=== PATIENT | female | born 1960 | race Caucasian/White ===

== ENCOUNTER → 2017-06-14 18:11 | Outpatient (CLI) | payer MEDICAID ==
[~2017-06-14 18:11] MED LIST: EFFEXOR XR75 MG PO; ESTRACE1 MG PO; LISINOPRIL-HCTZ1 T13 PO; NORCO 7.5/325 T1 TA1 PO; OS-CAL500 MG PO; PRAVACHOL40 MG PO; VITAMIN D31000 UNIT PO; XANAX1 MG PO
[2017-08-24 07:45] VITALS: BMI 26.2
== END | disposition home or self-care (01) ==
LOC: D.MAMMO 15:45
DX: Z12.31 Encounter for screening mammogram for malignant neoplasm of breast (principal)

== ENCOUNTER → 2017-06-17 09:15 | Outpatient (CLI) | payer MEDICAID ==
--- NOTE | 2017-06-22 10:07 | EC ---
PATIENT:DAYSI DOAN DATE OF SERVICE: 06/17/17 SEX: F MEDICAL RECORD: [id number] DATE OF : 58 LOCATION:D.[facility], [facility] AGE OF PATIENT: 57 ADMISSION DATE: 06/17/17 REFERRING PHYSICIAN: INTERPRETING PHYSICIAN: LAWANDA BELLAMY MD ECHOCARDIOGRAM REPORT ECHO CHARGES 4 ECHO COMPLETE CLINICAL DIAGNOSIS: CP/SOB ECHOCARDIOGRAPHIC MEASUREMENTS (adult normal given) AC root (d.<3.7cm) 2.6 cm LV Septum d (<1.2 cm> 1.6 cm Valve Excursion 1.7 cm LV Septum (systole) 2.0 cm Left Atria (s.<4.0cm> 3.7 cm LVPW d(<1.2cm) 1.6 cm RV (d.<2.3cm) 2.5 cm LVPW (sytole) 2.0 cm LV diastole(<5.6CM) 4.5 cm MV E-F(>70mm/sec) cm LV systole 2.2 cm LVOT Diameter 1.9 cm MV exc.(>10mm) cm Est.ejection fraction (50-75%) % Pericardial Effusion N DOPPLER: LVIT cm/sec A 67.0 cm/sec E 97.0 cm/sec LA cm/sec RVSP 20.0 mmHg LVOT 146 cm/sec AOP1/2T m/s Asc. Ao 162 cm/sec RVOT 59.0 cm/sec RA cm/sec PA 86.0 cm/sec AV Gradient Peak 10.4 mmHg AV Mean 4.6 mmHg AV Area 2.2 cm MV Gradient Peak 4.0 mmHg MV Mean 1.1 mmHg MV Area cm COMMENTS: Marketing Segment Manager: Yuri DOTSONOE Pcas: 4 Dr. Bellamy TAPE# PACS DATE OF SERVICE: 06/17/2017 PROCEDURE: Transthoracic echocardiogram. FINDINGS: 1. Left ventricle has [id number]-[id number] concentric left ventricular hypertrophy with inflow characteristics that are normal. No evidence of regional wall motion abnormality and ejection fraction of 60% to 65%. 2. The right ventricle is normal size, normal function. 3. The left atrium is normal size, normal function. ECHOCARDIOGRAM REPORT [id number] DAYSI DOAN 4. The mitral valve has moderate mitral regurgitation. 5. The tricuspid valve has mild tricuspid regurgitation with normal right ventricular systolic pressures estimated on today's study. 6. The pulmonic valve is grossly normal. 7. The aortic valve is normal. 8. The pericardium is normal. CONCLUSIONS: The patient has evidence of mild to moderate hypertensive heart disease with moderate mitral regurgitation. TRANSINT:[id number] Voice Confirmation ID: [id number] DOCUMENT ID: [id number] LAWANDA BELLAMY MD at 1007 CC: [id number] DICTATION DATE: 06/20/17 0936 ICE CREAM SERVER: 06/20/17 1109 DEP CLI 06/17/17 [facility] [address] [place] [address]
[2017-08-24 07:45] VITALS: BMI 26.2
== END | disposition home or self-care (01) ==
LOC: D.ECHO 09:15
DX: R06.00 Dyspnea, unspecified (principal); R00.2 Palpitations

== ENCOUNTER → 2017-07-07 07:31 | Outpatient (CLI) | payer MEDICAID ==
[2017-08-24 07:45] VITALS: BMI 26.2
== END | disposition home or self-care (01) ==
LOC: D.NM 06-23 08:00
DX: R00.2 Palpitations (principal); J44.9 Chronic obstructive pulmonary disease, unspecified; R06.09 Other forms of dyspnea; R07.2 Precordial pain

== ENCOUNTER → 2017-07-18 07:45 | Outpatient (CLI) | payer MEDICAID ==
--- NOTE | 2017-08-09 08:55 | ST ---
PATIENT:DAYSI DOAN MEDICAL RECORD: [id number] SEX: F LOCATION:[facility] ORDER #: ADMISSION DATE: 07/18/17 AGE OF PATIENT: 57 REFERRING PHYSICIAN: INTERPRETING PHYSICIAN: LAWANDA BELLAMY MD DATE OF SERVICE: 07/18/2017 The patient underwent a standard Lexiscan directed nuclear stress test without difficulties per standard protocol. The patient's heart rate was appropriate. She had no significant symptoms before, during, or after. CONCLUSIONS: The patient's ejection fraction is 81%. The patient had an area of mild reversible ischemia in the apical segment. TRANSINT:[id number] Voice Confirmation ID: [id number] DOCUMENT ID: [id number] LAWANDA BELLAMY MD at 0855 CC: [id number] DICTATION DATE: 07/19/172001 SCRIBING MACHINE OPERATOR: 07/20/17 0844 DEP CLI 07/18/17 [id number] [place] [address]
[2017-08-24 07:45] VITALS: BMI 26.2
== END | disposition home or self-care (01) ==
LOC: D.NM 07:45
DX: R07.2 Precordial pain (principal)

== ENCOUNTER 2017-08-24 07:12 | Outpatient (CLI) | payer MEDICAID ==
[~2017-08-24] VITALS: Ht 170.2 cm; Wt 75.9 kg
[2017-08-24] MEDS ORDERED: PRAVACHOL40 MG PO (07:23)
[2017-08-24] MEDS ORDERED: LISINOPRIL-HCTZ1 T13 PO (07:23)
[2017-08-24] MEDS ORDERED: NORCO 7.5/325 T1 TA1 PO (07:24)
[2017-08-24] MEDS ORDERED: EFFEXOR XR75 MG PO (07:24)
[2017-08-24] MEDS ORDERED: XANAX1 MG PO (07:24)
[2017-08-24] MEDS ORDERED: OS-CAL500 MG PO (07:25)
[2017-08-24] MEDS ORDERED: VITAMIN D31000 UNIT PO (07:25)
[2017-08-24] MEDS ORDERED: ESTRACE1 MG PO (07:27)
[2017-08-24 07:45] VITALS: BP 111/64; Ht 170.2 cm; Wt 75.9 kg
[2017-08-24 07:49] LABS: BASOPHILS 0.3 % (0-2); EOSINOPHILS 4.8 % (0-7); HEMATOCRIT 36.3 % (36.0-48.0); IMMATURE GRANULOCYTES 0.2 % (0-5); LYMPHOCYTES 26.2 % (15-50); MCH 30.2 pg (26.0-34.0); MCHC 33.1 g/dL (31.0-37.0); MCV 91.2 fL (80.0-100.0); MEAN PLATELET VOLUME 10.6 fL (7.4-10.4); MONOCYTES 6.3 % (2-11); NEUTROPHILS 62.2 % (40-80); PLATELET COUNT 293 10x3/uL (130-400); RBC 3.98 10x6/uL (4.00-5.40); RDW 13.4 % (11.5-14.5); WBC 9.1 10x3/uL (4.8-10.8)
[2017-08-24 08:02] LABS: ANION GAP 9.5 mmol/L (8-16); CALCIUM 9.5 mg/dL (8.5-10.1); CARBON DIOXIDE 32.5 mmol/L (21.0-32.0)
--- NOTE | 2017-08-24 10:25 | NUR ---
0945 SITTING UP, ROOM AIR WITH NO RESP DISTRESS. NSR W NO C/O CHEST PAIN. PULSES PALP X 4. R WRIST TR BAND C/D/I W NO HEMATOMA OR BLEEDING. FAMILY AT BEDSIDE.
--- NOTE | 2017-08-24 10:27 | NUR ---
1015 R WRIST TR BAND REMAINS C/D/I W NO HEMATOMA OR BLEEDING. ALL VITALS WNL. FAMILY AT BEDSIDE.
--- NOTE | 2017-08-24 10:36 | NUR ---
SITTING UP EATING TURKEY SANDWICH WITH ASSIST FROM FAMILY. 2CC AIR REMOVED FROM R WRIST TR BAND.
--- NOTE | 2017-08-24 10:57 | NUR ---
2CC AIR REMOVED FROM R WRIST TR BAND. WILL MONITOR CLOSELY FOR BLEEDING. PIV REMOVED FROM L AC WITH BANDAID APPLIED. UP TO BEDSIDE TO DRESS WITH ASSIST FROM FAMILY.
== END 2017-08-24 13:13 | disposition home or self-care (01) ==
LOC: D.CATH 07:12
PROVIDERS: Internal Medicine Cardiovascular Disease
DX: I25.10 Atherosclerotic heart disease of native coronary artery without angina pectoris (principal); I12.0 Hypertensive chronic kidney disease with stage 5 chronic kidney disease or end stage renal disease; N18.6 End stage renal disease; R94.39 Abnormal result of other cardiovascular function study; R55 Syncope and collapse; Z01.812 Encounter for preprocedural laboratory examination

== ENCOUNTER 2017-10-20 08:01 | Emergency (ER) | payer MEDICAID ==
[2017-08-24 07:45] VITALS: BMI 26.2
[2017-10-20 08:27] LABS: BASOPHILS 0.2 % (0-2); EOSINOPHILS 2.2 % (0-7); HEMATOCRIT 36.5 % (36.0-48.0); HEMOGLOBIN 12.3 g/dL (12-16); IMMATURE GRANULOCYTES 0.3 % (0-5); LYMPHOCYTES 17.6 % (15-50); MCH 30.1 pg (26.0-34.0); MCHC 33.7 g/dL (31.0-37.0); MCV 89.5 fL (80.0-100.0); MEAN PLATELET VOLUME 10.7 fL (7.4-10.4); MONOCYTES 6.2 % (2-11); NEUTROPHILS 73.5 % (40-80); PLATELET COUNT 309 10x3/uL (130-400); RBC 4.08 10x6/uL (4.00-5.40); RDW 13.4 % (11.5-14.5); WBC 12.5 10x3/uL (4.8-10.8)
[2017-10-20 08:48] LABS: ALBUMIN 3.7 g/dL (3.4-5.0); ALKALINE PHOSPHATASE 72 U/L (46-116); ALT (SGPT) 24 U/L (10-68); BILIRUBIN - TOTAL 0.18 mg/dL (0.2-1.3); CALC OSMOLALITY 271 mosm/kg (275-300); CALCIUM 9.3 mg/dL (8.5-10.1); CARBON DIOXIDE 26.6 mmol/L (21.0-32.0); CHLORIDE - SERUM 98 mmol/L (98-107); CREATININE - SERUM 1.1 mg/dL (0.6-1.3); GLUCOSE 137 mg/dL (74-106); POTASSIUM - SERUM 3.7 mmol/L (3.5-5.1); PROTEIN - SERUM 7.5 g/dL (6.4-8.2); SODIUM 134 mmol/L (136-145); UREA NITROGEN 17 mg/dL (7-18); eGFR NON AFRICAN AMERICAN 54 mL/min (90-120)
[2017-10-20 08:58] LABS: CHOL - HDL RATIO 2.7 ratio (2.3-4.1); CHOLESTEROL, TOTAL 207 mg/dL (0-200); CKMB 1.9 U/L (0.0-3.6); CREATINE KINASE 81 UL (21-215); HDL CHOLESTEROL 77 mg/dL (32-96); LDL CHOLESTEROL 108 mg/dL (0-100); LDL-HDL RATIO 1.4 ratio (1.5-3.5); TRIGLYCERIDE 114 mg/dL (30-200); TROPONIN-I < 0.017 ng/mL (0.000-0.060)
== END 2017-10-20 12:35 | disposition home or self-care (01) ==
LOC: D.ER 08:01
PROVIDERS: Emergency Medicine
DX: R07.9 Chest pain, unspecified (principal); F17.200 Nicotine dependence, unspecified, uncomplicated; I10 Essential (primary) hypertension

== ENCOUNTER → 2017-11-16 07:30 | Outpatient (CLI) | payer MEDICAID ==
[2017-08-24 07:45] VITALS: BMI 26.2
== END | disposition home or self-care (01) ==
LOC: D.RT 11-04 08:00
DX: R06.02 Shortness of breath (principal); R00.2 Palpitations; R07.89 Other chest pain

== ENCOUNTER → 2018-01-13 14:52 | Outpatient (CLI) | payer MEDICAID ==
[2017-08-24 07:45] VITALS: BMI 26.2
[2018-01-13 15:35] LABS: CHOL - HDL RATIO 3.1 ratio (2.3-4.1); LDL-HDL RATIO 1.8 ratio (1.5-3.5)
== END | disposition home or self-care (01) ==
LOC: D.LABREF 14:52
PROVIDERS: Internal Medicine Cardiovascular Disease
DX: E78.5 Hyperlipidemia, unspecified (principal)

== ENCOUNTER 2018-02-28 07:05 | Day surgery (SDC) | payer MEDICAID ==
[2018-02-27 10:35] LABS: HEMATOCRIT 37.3 % (36.0-48.0); HEMOGLOBIN 12.7 g/dL (12-16); RBC 4.24 10x6/uL (4.00-5.40); RDW 12.7 % (11.5-14.5); WBC 9.8 10x3/uL (4.8-10.8)
[2018-02-27 11:00] LABS: CALC OSMOLALITY 283 mosm/kg (275-300); CALCIUM 9.2 mg/dL (8.5-10.1); CARBON DIOXIDE 28.4 mmol/L (21.0-32.0); CHLORIDE - SERUM 106 mmol/L (98-107); CREATININE - SERUM 0.8 mg/dL (0.6-1.3); GLUCOSE 104 mg/dL (74-106); POTASSIUM - SERUM 3.5 mmol/L (3.5-5.1); SODIUM 142 mmol/L (136-145); UREA NITROGEN 15 mg/dL (7-18); eGFR NON AFRICAN AMERICAN 78 mL/min (90-120)
[~2018-02-28] VITALS: Ht 170.2 cm; Wt 77.1 kg
--- NOTE | ~2018-02-28 | OP ---
PATIENT NAME: DAYSI DOAN MEDICAL RECORD: [id number] :58 LOCATION:D.[facility] ADMISSION DATE: SURGEON: CEASAR DUBOSE MD DATE OF OPERATION: 02/28/2018 PREOPERATIVE DIAGNOSES: Left L4-L5 foraminal stenosis and central canal stenosis, left L5 radiculopathy. POSTOPERATIVE DIAGNOSES: Left L4-L5 foraminal stenosis and central canal stenosis, left L5 radiculopathy. SURGEON: Ceasar Dubose MD PRIMARY CARE DOCTOR: Dr. Duffy in [place], [place]. PROCEDURE: L4-L5 left lumbar laminotomy, medial facetectomy and foraminotomy with METRx retractor. DESCRIPTION AND TECHNIQUE: After induction of general endotracheal anesthesia, the patient was rolled prone on the Viral frame. Lumbar spine was prepped and draped in usual sterile fashion. Fluoroscopic x-ray and spinal needle localized the L4-L5 interspace on the left side. A stab incision was created with #11 blade. Series of dilators were used to advance the METRx retractor at the L4-L5 interspace on the left side. Level was confirmed with fluoroscopic x-ray. A microscope and Midas Seth drill were used to perform laminotomy, medial facetectomy, and foraminotomy at L4-L5 on the left. Hypertrophied ligamentum flavum was removed with Cloward rongeurs. Additional material was removed within the foramen with Cloward rongeurs. Following this, the left L4 and L5 nerve roots were decompressed well. Meticulous hemostasis was maintained throughout the wound. The disc space was inspected and found to cause no significant nerve root compression. The retractor was removed. The fascia was closed with 2-0 Vicryl suture. Subdermal layer was closed with 3-0 Vicryl suture. The skin was reapproximated with Dermabond. All counts were reported as correct. Estimated blood loss was minimal. TRANSINT:[id number] Voice Confirmation ID: [id number] DOCUMENT ID: [id number] CEASAR DUBOSE MD at 1844 CC: [id number] DICTATION DATE: 02/28/18 1238 BEARING GRINDER: 02/28/18 1300 DEP SD 02/28/18 [place] [address]
[2018-02-28 08:05] VITALS: BP 108/59; Ht 170.2 cm; Wt 77.1 kg
== END 2018-02-28 14:00 | disposition home or self-care (01) ==
LOC: D.OPS 07:05 → D.PAN 08:30 → D.OPS 08:30 → D.PAN 09:00 → D.OPS 14:00
PROVIDERS: Anesthesiology
DX: M54.16 Radiculopathy, lumbar region (principal); Z72.0 Tobacco use; Z01.812 Encounter for preprocedural laboratory examination; I25.10 Atherosclerotic heart disease of native coronary artery without angina pectoris; I10 Essential (primary) hypertension; J43.9 Emphysema, unspecified

== ENCOUNTER → 2018-05-16 14:11 | Outpatient (CLI) | payer MEDICAID ==
[2018-02-28 08:05] VITALS: BMI 25.1
== END | disposition home or self-care (01) ==
LOC: D.MRI 14:11
DX: M54.16 Radiculopathy, lumbar region (principal); M54.12 Radiculopathy, cervical region

== ENCOUNTER 2018-06-22 06:45 | Inpatient (IN) | payer MEDICAID ==
[2018-06-20 10:25] LABS: HEMATOCRIT 35.7 % (36.0-48.0); HEMOGLOBIN 12.3 g/dL (12-16); MCH 29.6 pg (26.0-34.0); MCHC 34.5 g/dL (31.0-37.0); MEAN PLATELET VOLUME 10.6 fL (7.4-10.4); RBC 4.15 10x6/uL (4.00-5.40); RDW 15.7 % (11.5-14.5); WBC 10.1 10x3/uL (4.8-10.8)
[2018-06-20 10:35] LABS: CALC OSMOLALITY 265 mosm/kg (275-300); CARBON DIOXIDE 27.4 mmol/L (21.0-32.0); CHLORIDE - SERUM 98 mmol/L (98-107); CREATININE - SERUM 0.8 mg/dL (0.6-1.3); GLUCOSE 108 mg/dL (74-106); SODIUM 131 mmol/L (136-145); UREA NITROGEN 19 mg/dL (7-18); eGFR NON AFRICAN AMERICAN 78 mL/min (90-120)
[2018-06-22] VITALS (7 sets, daily range): BP systolic 105–131; BP diastolic 59–83; Ht 170.2 cm; Wt 76.4 kg
[~2018-06-22] VITALS: Ht 170.2 cm; Wt 76.4 kg
--- NOTE | ~2018-06-22 | OP ---
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 POSTOPERATIVE DIAGNOSES: Disc herniation and osteophyte formation at C4-5 with left C5 radiculopathy. PROCEDURE: Anterior cervical discectomy and fusion at C4-C5 with [employer] anterior cervical plate and screws, Mira bone stem cell allograft. REFERRING PHYSICIAN: Renny Duffy MD SURGEON: Ceasar Arguello MD DESCRIPTION AND TECHNIQUE: After induction of general endotracheal anesthesia, the patient was positioned supine on the operating table. Neck was prepped and draped in usual sterile fashion. Fluoroscopic x-ray and freer localized the C4-5 interspace. After infiltration of 1:100,000 epinephrine and 1% lidocaine in the subcutaneous tissues, a transverse skin incision was carried out from the midline to the sternocleidomastoid muscle. The platysma was divided with Bovie cautery. Then, using blunt and sharp dissection with Metzenbaum scissors, I proceeded in an avascular plane medial to the carotid sheath. The C4-C5 interspace was identified with fluoroscopic x-ray and a spinal needle. The longus colli muscles were elevated from bodies of C4 and C5. Osteophytes removed anteriorly with Adson rongeurs. [place] distracting pins were placed by the C4 and C5. The disc space was incised under distraction. Disc material was removed with pituitary rongeurs and curettes. Under microscopic illumination osteophytes were drilled away posteriorly with a Midas-Seth drill under microscope. The posterior longitudinal ligament was removed with Cloward rongeurs. Following this, the dura was decompressed well. A PEEK interbody cage and plate were used to span the C4-C5 interspace. Prior to this, a Mira bone allograft was placed in the disc space in the PEEK cage. Next, screws were placed through the holes in the plate and then the locking Cam was tightened down over each side of the screw head, good position of the hardware was confirmed with fluoroscopic x-ray. Meticulous hemostasis was maintained throughout the wound. The wound was irrigated with copious amounts of Ancef irrigant solution. The platysma was closed with interrupted 3-0 Vicryl suture, the subdermal layer was closed with interrupted 3-0 Vicryl suture. The skin was reapproximated with Steri-Strips and then benzoin. A sterile dressing was applied to the wound. The patient was awakened in good condition and taken to recovery. All counts were reported as correct. Estimated blood loss was minimal. TRANSINT:[id number] Voice Confirmation ID: [id number] DOCUMENT ID: [id number] OPERATIVE REPORT [id number] DAYSI DOAN, CEASAR BUTLER at 1352 CC: [id number] DICTATION DATE: 06/22/18 1601 GLYCERIN SUPERVISOR: 06/22/182058 ADM IN [id number] [place] [address]
[~2018-06-22 06:45] MED LIST changes: +ASPIRIN EC81 M1 PO; +NORCO 10-325 TA1 TAB PO; +VISTARIL25 MG PO
[2018-06-23 04:35] VITALS: BP 148/54
[2018-06-23 08:21] VITALS: BP 153/72
[2018-06-23 12:36] VITALS: BP 157/71
[2018-06-23] MEDS ORDERED: NORCO 10-325 TA1 TAB PO (14:18)
== END 2018-06-23 16:34 | disposition home or self-care (01) | DRG 473 ==
LOC: D.OPS 06:45 → D.PAN 10:15 → D.OPS 11:30 → D.MS 16:53 → D.OPS 16:54 → D.MS 16:55
PROVIDERS: Anesthesiology; Neurological Surgery
PROC: 0RB30ZZ Excision of Cervical Vertebral Disc, Open Approach (ICD-10-PCS; 2018-06-22)
PROC: 0RG10A0 Fusion of Cervical Vertebral Joint with Interbody Fusion Device, Anterior Approach, Anterior Column, Open Approach (ICD-10-PCS; principal; 2018-06-22 11:30)
DX: M50.121 Cervical disc disorder at C4-C5 level with radiculopathy (principal); M25.78 Osteophyte, vertebrae

== ENCOUNTER → 2018-12-26 12:47 | Outpatient (CLI) | payer MEDICAID ==
[~2018-12-26 12:47] MED LIST changes: +PERCOCET 10-321 EAC1 PO; +ROBAXIN500 MG PO
== END | disposition home or self-care (01) ==
LOC: D.RAD 12:47
DX: M54.16 Radiculopathy, lumbar region (principal)

== ENCOUNTER 2019-01-29 13:36 | Observation (INO) | payer MEDICAID ==
[~2019-01-29] VITALS: Ht 170.2 cm; Wt 79.5 kg
[~2019-01-29 13:36] MED LIST changes: -PERCOCET 10-321 EAC1 PO; -ROBAXIN500 MG PO
[2019-02-01 05:38] LABS: HEMATOCRIT 36.2 % (36.0-48.0); HEMOGLOBIN 12.1 g/dL (12-16); MCH 29.5 pg (26.0-34.0); MCHC 33.4 g/dL (31.0-37.0); MCV 88.3 fL (80.0-100.0); RBC 4.1 10x6/uL (4.00-5.40); RDW 13.7 % (11.5-14.5); WBC 11.4 10x3/uL (4.8-10.8)
[2019-02-01 06:43] VITALS: BP 108/71; BMI 25.9
[2019-02-01 11:04] VITALS: BP 131/74
[2019-02-01 11:11] VITALS: BP 131/74; Ht 170.2 cm; Wt 79.5 kg
--- NOTE | 2019-02-01 11:15 | NUR ---
REC'D PT FROM MARIO PEREIRA. PT AROUSE BY VOICE. NO S/S OF ACUT DISTRESS. FRIEND AND DAUGHTER ACCOMPANIED PT. CL IN PLACE.
[2019-02-01 13:35] VITALS: BP 130/81
[2019-02-01 18:07] VITALS: BP 124/78
--- NOTE | 2019-02-01 19:32 | NUR ---
PT ALERT AND ORIENTED. WALKING THE HALLS. STATES UNDERSTANDING OF FALL RISKS, PT REPLIES "I AM NOT GOING TO SIT. I AM GOING CRAZY IN HERE." SMALL AMOUNT OF DRAINAGE NOTED TO THE DRESSING TO POSTERIOR NECK. OUTLINED FOR DOCUMENTATION AND TO KEEP TRACK OF POST OP DRAINAGE. PT STATES SHE SUFFERS FROM CHRONIC PAIN BUT THE SENSATION SHE IS EXPERIENCING NOW IS MORE BURNING THAN IT IS CHRONIC TYPE PAIN. PT ASKING WHEN NEXT AVAILABLE PAIN MEDS ARE DUE AND REQUESTS NORCO WHEN AVAILABLE. PT HAS RIGHT FOREARM IV THAT APPEARS PATENT WITH NO REDNESS OR TENDERNESS TO SITE. INFUSING 1/2 NS @ 75. PT WEARS 2 L NC PRN. CURRENT SATURATION 95 % ON ROOM AIR. PT STATES SHE IS A 3 PACK A DAY SMOKER. OFFERED NICOTENE PATCH BUT PT REFUSES STATES "THEY DON'T WORK." DENIES FURTHER CARE AT THIS TIME. HAS CALL LIGHT IN HAND AND DEMONSTRATES HOW TO USE EFFECTIVELY.
--- NOTE | 2019-02-01 19:51 | NUR ---
WALKED WITH PT AROUND THE [place]. PT DID WELL. STEADY GAIT. NO S/S OF ACUTE DISTRESS. CL IN PLACE.
[2019-02-01 20:00] VITALS: BP 128/53
[2019-02-02] VITALS: BP 141/70
--- NOTE | 2019-02-02 01:37 | NUR ---
I have reviewed this patient and I concur with the Shift Assessment completed by the Licensed Practical Nurse today this shift.
[2019-02-02 04:00] VITALS: BP 124/69
[2019-02-02] MEDS ORDERED: PERCOCET 10-321 EAC1 PO (09:27)
[2019-02-02 09:30] VITALS: BP 126/68
--- NOTE | 2019-02-02 09:32 | NUR ---
PIV REMOVED, TIP INTACT.
[2019-02-02] MEDS ORDERED: ROBAXIN500 MG PO (09:34)
[2019-02-02 09:39] VITALS: BP 126/68
--- NOTE | 2019-02-02 10:09 | NUR ---
DISCUSSED DISCHARGE, MEDICATION AND FOLLOW-UP INSTRUCTIONS WITH PATIENT. GAVE PRINTED RX'S. ADVISED TO LET ME KNOW WHEN RIDE IS HERE SO I CAN CALL FOR WHEELCHAIR TO DISCHARGE.
--- NOTE | 2019-02-02 10:15 | NUR ---
PATIENT DISCHARGED HOME VIA WHEELCHAIR BY VOLUNTEER STAFF. ALL BELONGINGS SENT WITH PATIENT.
== END 2019-02-02 10:15 | disposition home or self-care (01) ==
LOC: D.MS 02-01 05:12 → D.SDCHOLD 02-01 05:12 → OBSVTIME 02-01 05:12 → D.SDCHOLD 02-01 07:30 → D.MS 02-01 10:58 → D.SDCHOLD 02-04 07:30
PROVIDERS: Anesthesiology; ADMIT Neurological Surgery; ATTEND Neurological Surgery
DX: M48.02 Spinal stenosis, cervical region (principal); I10 Essential (primary) hypertension; I25.10 Atherosclerotic heart disease of native coronary artery without angina pectoris; F17.210 Nicotine dependence, cigarettes, uncomplicated

== ENCOUNTER 2019-04-16 08:39 | Emergency (ER) | payer MEDICAID ==
[~2019-04-16] VITALS: Ht 170.2 cm; Wt 81.8 kg
[~2019-04-16 08:39] MED LIST changes: +PERCOCET 10-321 EAC1 PO; +ROBAXIN500 MG PO
[2019-04-16 08:42] VITALS: Ht 170.2 cm; Wt 81.8 kg
[2019-04-16 09:14] LABS: BASOPHILS 0.1 % (0-2); EOSINOPHILS 1.1 % (0-7); HEMATOCRIT 40.5 % (36.0-48.0); IMMATURE GRANULOCYTES 0.6 % (0-5); MCH 28.3 pg (26.0-34.0); MCHC 34.6 g/dL (31.0-37.0); MCV 81.8 fL (80.0-100.0); MEAN PLATELET VOLUME 10.5 fL (7.4-10.4); NEUTROPHILS 82.2 % (40-80); PLATELET COUNT 313 10x3/uL (130-400); RBC 4.95 10x6/uL (4.00-5.40); RDW 15.2 % (11.5-14.5); WBC 17.7 10x3/uL (4.8-10.8)
[2019-04-16 09:32] LABS: ALBUMIN 3.9 g/dL (3.4-5.0); ANION GAP 18.7 mmol/L (8-16); BILIRUBIN - TOTAL 0.35 mg/dL (0.2-1.3); CALCIUM 9.4 mg/dL (8.5-10.1); CARBON DIOXIDE 20.3 mmol/L (21.0-32.0); CREATININE - SERUM 1.2 mg/dL (0.6-1.3); PROTEIN - SERUM 7.7 g/dL (6.4-8.2)
[2019-04-16 10:31] LABS: UDS - AMPHET NEGATIVE QUAL (NEGATIVE); UDS - BARB NEGATIVE QUAL (NEGATIVE); UDS - BENZO POSITIVE QUAL (NEGATIVE); UDS - COCAINE NEGATIVE QUAL (NEGATIVE); UDS - OPIATE POSITIVE QUAL (NEGATIVE); UDS - PCP NEGATIVE QUAL (NEGATIVE); UDS - THC POSITIVE QUAL (NEGATIVE)
--- NOTE | 2019-04-16 10:46 | NUR ---
REVIEWED RESOURCES WITH PT AND GAVE A COPY FOR HER TO TAKE HOME. VERBALIZED UNDERSTANDING.
[2019-04-16 10:54] LABS: APPEARANCE CLEAR (CLEAR); BILIRUBIN NEGATIVE (NEGATIVE); COLOR YELLOW (YELLOW); EPITHELIAL CELLS OCC /hpf (0-5); GLUCOSE NEGATIVE (NEGATIVE); KETONE MODERATE mg/dL (NEGATIVE); NITRITE NEGATIVE (NEGATIVE); PROTEIN TRACE mg/dL (NEGATIVE); RED CELLS - URINE 0-5 /hpf (0-5); UROBILINOGEN NORMAL (NORMAL); WHITE CELLS - URINE RARE /hpf (0-5)
[2019-04-16 10:55] LABS: BACTERIA FEW /hpf (NONE SEEN); MUCUS <1+ /lpf (NONE SEEN)
[2019-04-16 11:56] VITALS: BP 139/89
== END 2019-04-16 11:50 | disposition home or self-care (01) ==
LOC: D.ER 08:39
PROVIDERS: Emergency Medicine
DX: T60.1X1A Toxic effect of halogenated insecticides, accidental (unintentional), initial encounter (principal); Y92.019 Unspecified place in single-family (private) house as the place of occurrence of the external cause; F41.0 Panic disorder [episodic paroxysmal anxiety]

== ENCOUNTER → 2019-05-03 09:49 | Outpatient (CLI) | payer MEDICAID ==
[2019-04-16 08:42] VITALS: BMI 28.2
== END | disposition home or self-care (01) ==
LOC: D.CT 09:49
PROVIDERS: ATTEND Internal Medicine Pulmonary Disease
DX: R91.1 Solitary pulmonary nodule (principal); J44.9 Chronic obstructive pulmonary disease, unspecified

== ENCOUNTER → 2019-07-25 08:46 | Outpatient (CLI) | payer MEDICARE ==
[2019-04-16 08:42] VITALS: BMI 28.2
--- NOTE | 2019-07-27 15:28 | ST ---
PATIENT:DAYSI DOAN MEDICAL RECORD: [id number] SEX: F LOCATION:[facility] ORDER #: ADMISSION DATE: 07/25/19 AGE OF PATIENT: 59 REFERRING PHYSICIAN: INTERPRETING PHYSICIAN: AIDE LIAO MD DATE OF SERVICE: 07/25/2019 PROCEDURE: Nuclear stress test. INDICATION: Angina, abnormal ECG, hypertension, hyperlipidemia, and diabetes. She was exercised on standard Lexiscan protocol with 33 mCi of sestamibi injected at peak stress, 11 mCi used previously for rest images. FINDINGS: Gated SPECT reveals preserved ejection fraction at 72% with good wall motion and thickening and brightening throughout all segments. SPECT imaging Cardiolite was used as myocardial fusion agent. There is homogeneous uptake throughout all segments at rest and stress with no evidence of inducible ischemia or previous infarction. OVERALL IMPRESSION: 1. This is a normal nuclear stress test with no evidence of inducible ischemia or previous infarction. 2. Gated SPECT reveals a preserved ejection fraction at 72%. In this patient with ongoing symptomatology, the current scan does not suggest the presence of hemodynamically significant coronary artery disease. Evaluate noncardiac etiology of chest pain. TRANSINT:[id number] Voice Confirmation ID: [id number] DOCUMENT ID: [id number] AIDE LIAO MD at 1528 CC: BUDDY NAZARIO MD [id number] DICTATION DATE: 07/25/19 1447 SLURRY TANK TENDER: 07/25/19 2340 DEP CLI 07/25/19 [id number] [place] [address]
== END | disposition home or self-care (01) ==
LOC: D.HCCARDIO 08:46
PROVIDERS: ATTEND Internal Medicine Interventional Cardiology
DX: I20.9 Angina pectoris, unspecified (principal)

== ENCOUNTER → 2020-01-30 12:29 | Outpatient (CLI) | payer MEDICARE ==
[2019-04-16 08:42] VITALS: BMI 28.2
== END | disposition home or self-care (01) ==
LOC: D.LABREF 12:29
PROVIDERS: ATTEND Internal Medicine Pulmonary Disease
DX: Z11.59 Encounter for screening for other viral diseases (principal)

== ENCOUNTER → 2020-02-11 08:28 | Outpatient (CLI) | payer MEDICARE, MEDICAID ==
[2019-04-16 08:42] VITALS: BMI 28.2
== END | disposition home or self-care (01) ==
LOC: D.RT 01-31 10:00
PROVIDERS: ATTEND Internal Medicine Pulmonary Disease
DX: J44.9 Chronic obstructive pulmonary disease, unspecified (principal); R91.1 Solitary pulmonary nodule

== ENCOUNTER → 2020-04-14 11:11 | Outpatient (CLI) | payer MEDICARE, MEDICAID ==
[2019-04-16 08:42] VITALS: BMI 28.2
== END | disposition home or self-care (01) ==
LOC: D.CT 03-14 13:00
PROVIDERS: ATTEND General Practice
DX: J32.9 Chronic sinusitis, unspecified (principal)

== ENCOUNTER → 2020-04-23 10:15 | Outpatient (CLI) | payer MEDICARE, MEDICAID ==
[2019-04-16 08:42] VITALS: BMI 28.2
== END | disposition home or self-care (01) ==
LOC: D.CT 10:15
PROVIDERS: ATTEND Internal Medicine Pulmonary Disease
DX: R91.1 Solitary pulmonary nodule (principal)

== ENCOUNTER 2020-11-27 10:13 | Emergency (ER) | payer MEDICARE, MEDICAID ==
[~2020-11-27] VITALS: Ht 170.2 cm; Wt 63.6 kg
[2020-11-27 10:18] VITALS: Ht 170.2 cm; Wt 63.6 kg
[2020-11-27] MEDS ORDERED: MEDROL DOSE PACK4 MG PO (11:41)
[2020-11-27 13:06] VITALS: BP 110/76
== END 2020-11-27 13:07 | disposition home or self-care (01) ==
LOC: D.ER 10:13
DX: M54.5 Low back pain (principal); G89.29 Other chronic pain; I10 Essential (primary) hypertension